=== PATIENT | male | born 1955 | race Caucasian/White ===

== ENCOUNTER 2020-12-19 09:11 | Observation (INO) ==
[2020-12-19 11:00] LABS: ABS Eosinophils 0.1 10^3/ul (0-0.6); ABS Lymphocytes 1.2 10^3/ul (1.0-4.8); ABS Monocytes 0.7 10^3/ul (0-0.8); ABS Neutrophils 4.2 10^3/ul (1.5-7.7); Eosinophil % 1.3 %; Hematocrit 42 % (42-52); Hemoglobin 14.5 g/dL (14.0-18.0); Lymphocyte % 19.2 %; Mean Corpuscular HGB Conc 35 g/dL (31-36); Mean Corpuscular Hemoglobin 33 pg (27-31); Mean Corpuscular Volume 95 fL (80-94); Platelet Count 225 10^3/uL (150-450); Red Blood Count 4.42 10^6 /uL (4.18-5.48); Red Cell Distribution Width 13 % (10-15); White Blood Count 6.2 10^3/uL (3.5-10.8)
[2020-12-19] MEDS ORDERED: fentaNYL 100 mcg/2 ml 50 MCG/ML VIAL IV SLOW PU ONE ×3 (11:06→15:20)
[2020-12-19] MEDS ORDERED: Morphine 4 MG/ML VIAL (1 ml) IV ONE (11:06)
[2020-12-19 11:08] LABS: Activated Partial Thrombo Time 24.9 seconds (26.0-38.0); INR 1.01 (0.82-1.09)
[2020-12-19] MEDS ORDERED: Lidocaine 1% VIAL 10 MG/ML VIAL INJ ONE (11:14)
[2020-12-19 11:17] LABS: Albumin 4.1 g/dL (3.2-5.2); Albumin/Globulin Ratio 1.5 (1-3); BUN/Creatinine Ratio 19.8 (8-20); Calcium 9.1 mg/dL (8.6-10.3); EGFR African American 115.7 (>60); EGFR Non-African American 95.6 (>60); Globulin 2.7 g/dL (2-4); Potassium 4.3 mmol/L (3.5-5.0); Total Bilirubin 0.8 mg/dL (0.2-1.0); Total Protein 6.8 g/dL (6.4-8.9)
[2020-12-19] MEDS ORDERED: Lidocaine 1% VIAL 10 MG/ML VIAL ONE (11:20)
[2020-12-19] MEDS ORDERED: NS 0.9% 1000 ml BAG 1,000 ML IV ONE (14:26)
[2020-12-19] MEDS ORDERED: Ondansetron 4 mg VIAL 2 MG/ML 2 ml VIAL ONE (14:57)
[2020-12-19] MEDS ORDERED: Ondansetron 4 mg VIAL 2 MG/ML 2 ml VIAL IV ONE (15:02)
[2020-12-19] MEDS ORDERED: oxyCODONE/Acetamin 5/325 mg TAB PO ONE (16:17)
[2020-12-19] MEDS ORDERED: Ondansetron 4 mg VIAL 2 MG/ML 2 ml VIAL IV PRN (17:00)
[2020-12-20 11:18] VITALS: BP 132/78
== END 2020-12-20 14:30 | disposition home or self-care (01) ==
LOC: ED 09:11 → SSU 09:11
PROVIDERS: ADMIT Surgery Surgical Critical Care; ATTEND Surgery